=== PATIENT | female | born 1985 | race Caucasian/White ===

== ENCOUNTER → 2016-03-17 | Outpatient (CLI) | payer OTHER ==
[2016-03-17 10:23] LABS: HEMATOCRIT 35.8 % (37.0-47.0); HEMOGLOBIN 11.8 g/dL (12.0-16.0); MEAN CORPUSCULAR HEMOGLOBIN 29.9 PG (27-31); MEAN PLATELET VOLUME 9.8 FL (7.4-12.2); RED BLOOD COUNT 3.95 10^6/uL (4.20-5.40); WHITE BLOOD COUNT 8.62 10^3/uL (4.8-10.8)
== END ==
LOC: LAB 09:09
PROVIDERS: ATTEND Student in an Organized Health Care Education/Training Program
DX: Z36 Encounter for antenatal screening of mother (principal); O36.0130 Maternal care for anti-D [Rh] antibodies, third trimester, not applicable or unspecified; Z3A.28 28 weeks gestation of pregnancy
CPT/HCPCS: 36415; 82950; 85027; 86850; 86900; 86901; J2790

== ENCOUNTER → 2016-03-31 | Outpatient (CLI) | payer OTHER ==
[2016-03-31 10:44] LABS: BLOODY SPECIMEN? NO
== END ==
LOC: MOB LAB 09:36
PROVIDERS: ATTEND Student in an Organized Health Care Education/Training Program
DX: O47.03 False labor before 37 completed weeks of gestation, third trimester (principal); N89.8 Other specified noninflammatory disorders of vagina; Z3A.30 30 weeks gestation of pregnancy
CPT/HCPCS: 82731; 87210

== ENCOUNTER 2016-04-30 09:54 | Outpatient (CLI) | payer OTHER ==
[2016-04-30] MEDS ORDERED: NORMAL SALINE 10 ML SYRINGE FLUSH IVP PRN (10:00)
[2016-04-30 11:07] VITALS: RESP 18; TEMP 97.8
== END 2016-04-30 11:15 | disposition home or self-care (01) ==
LOC: OBOP 09:54
PROVIDERS: ATTEND Obstetrics & Gynecology
DX: O60.03 Preterm labor without delivery, third trimester (principal); Z3A.35 35 weeks gestation of pregnancy
CPT/HCPCS: 59025; 81003; 96372; 99211

== ENCOUNTER → 2016-05-19 | Outpatient (CLI) | payer OTHER | LOC: MOB LAB 09:45 | PROVIDERS: ATTEND Student in an Organized Health Care Education/Training Program | DX: O26.893 Other specified pregnancy related conditions, third trimester (principal); N89.8 Other specified noninflammatory disorders of vagina; Z36 Encounter for antenatal screening of mother; Z3A.37 37 weeks gestation of pregnancy | CPT/HCPCS: 84112; 87150 ==

== ENCOUNTER 2016-06-01 09:48 | Inpatient (IN) | payer OTHER ==
[2016-06-01] MEDS ORDERED: Carboprost Inj 250 MCG/ML AMP IM PRN (18:52)
[2016-06-01] MEDS ORDERED: NORMAL SALINE 10 ML SYRINGE FLUSH IVP PRN (18:52)
[2016-06-01] MEDS ORDERED: NALOXONE 0.4 MG/1 ML VIAL IVP PRN (18:52)
[2016-06-01] MEDS ORDERED: LIDOCAINE W/ SODIUM BICARB 0.5 ML SYR SUBD PRN (18:52)
[2016-06-01] MEDS ORDERED: ONDANSETRON 4 MG/2 ML VIAL IVP PRN (18:52)
[2016-06-01] MEDS ORDERED: Phenylephrine Inj 50 MCG in Normal Saline Flush 0.5 ML IVP PRN (18:52)
[2016-06-01] MEDS ORDERED: CALCIUM CARBONATE 500 MG (TUMS) CHEWABLE TABLET PO PRN (18:52)
[2016-06-01] MEDS ORDERED: Metoclopramide Inj 10 MG/2 ML VIAL IV PRN (18:52)
[2016-06-01] MEDS ORDERED: TERBUTALINE SULFATE 1 MG/1 ML SDV SUBCUT PRN (18:52)
[2016-06-01] MEDS ORDERED: Nalbuphine Inj 20 MG/ML Ampule IVP PRN (18:52)
[2016-06-01] MEDS ORDERED: ePHEDrine Inj 5 MG in Normal Saline Flush 1 ML IVP PRN (18:52)
[2016-06-01] MEDS ORDERED: BUTORPHANOL TARTRATE 2 MG/1 ML VIAL IVP PRN (18:52)
[2016-06-01] MEDS ORDERED: CefOXitin Inj 2 GM in Sodium Chloride 0.9% 100 ML IV PRN (18:52)
[2016-06-01] MEDS ORDERED: fentaNYL Inj 100 MCG/2 ML VIAL IV PRN (18:52)
[2016-06-01] MEDS ORDERED: OXYTOCIN 10 UNIT/1 ML IM PRN (18:52)
[2016-06-01] MEDS ORDERED: Naloxone Inj 0.01 MG in Normal Saline Flush 1 ML IVP PRN (18:52)
[2016-06-01] MEDS ORDERED: Famotidine Inj 20 MG in Normal Saline Flush 10 ML IVP PRN ×4 (18:52)
[2016-06-01] MEDS ORDERED: Lidocaine 1% 10 MG/ML - 20 ML VIAL SUBCUT PRN (18:52)
[2016-06-01] MEDS ORDERED: diphenhydrAMINE 50 MG/1 ML VIAL IVP PRN (18:52)
[2016-06-01] MEDS ORDERED: CITRIC ACID/SODIUM CITRATE 30 ML CUP PO PRN (18:52)
[2016-06-01] MEDS ORDERED: METHYLERGONOVINE MALEATE 0.2 MG/1 ML VIAL IM PRN (18:52)
[2016-06-01] MEDS ORDERED: MISOPROSTOL 200 MCG TABLET RECTAL PRN (18:52)
[2016-06-01] MEDS ORDERED: Oxytocin 20 Units + LR 1,000 ML IV SCH (19:00)
[2016-06-01] MEDS: Lactated Ringers-OB Dept 1,000 ML PRIMARY IV SCH (20:07)
[2016-06-01 20:19] LABS: HEMOGLOBIN 11.4 g/dL (12.0-16.0); MEAN CORPUSCULAR HEMOGLOBIN 29.3 PG (27-31); MEAN CORPUSCULAR HGB CONC 32.6 g/dL (33-37); MEAN PLATELET VOLUME 10.9 FL (7.4-12.2); RED BLOOD COUNT 3.89 10^6/uL (4.20-5.40)
[2016-06-01] MEDS: Oxytocin 20 Units + LR 1,000 ML IV SCH (22:33)
[2016-06-02] MEDS: Lactated Ringers-OB Dept 1,000 ML PRIMARY IV SCH (03:43)
[2016-06-02] MEDS: Oxytocin 20 Units + LR 1,000 ML IV SCH ×2 (07:24→12:54)
[2016-06-02 08:26] VITALS: RESP 18
--- NOTE | 2016-06-02 08:29 | OB.PROGRES ---
Interval History: 31 yo at 39 6/7 weeks gestation by LMP, 1st tri u/s presented yesterday afternoon for irregular contractions. She returned yesterday evening for augmentation of labor with a cervical change from 1.5 cm to 3-4 cm while out walking. She was admitted overnight and placed on low dose pitocin. Contractions have remained irregular, frequent couplets. This morning informal u /s showed OP presentation. She is having mild discomfort with contractions. has been uncomplicated. She did get a course of steroids given h/o delivery. OBHx - 01/13/07 - Delivered a 7lb 6oz male via at 37 weeks. was flown to a tertiary care center for r/o sepsis 2007 - SAB about 6 weeks gestation, no D&C 02/06/09 - Delivered a 7lb 2oz male via at 36 weeks. had a pneumothorax - was sent to a tertiary care center 05/21/10 - Delivered a 7lb female via at 38 weeks. complicated by salmonella enteritis with multiple hospitalization. 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 Paragard IUD taken out in March 2015. No h/o STI. Last pap March 2015, negative. HPV negative. No h/o abnormal paps. PMH - Kidney stones, depression/anxiety FH - mother - HTN, T2DM, asthma Sister - asthma FOBFH - MGM - thyroid cancer MGF - T2DM SH - biomedical photographer, subs at school. to [employer]. Smoked off and on since high school, quit in March 2015 when they decided to start trying. Rare etoh use prior to conception. NKDA Meds: PNV Objective - Cervical Exam Cervical Exam: /-2, posterior, soft, ballotable [place]: q2-5 mins Heart Rate: baseline 130, mod variability, +accels, -decels Heart Rate Interpretation Category: Category I - Labs CBC and BMP: 06/01/16 20:13 Labs - Last 24 Hours: Laboratory Results 06/01/16 Range/Units 20:13 WBC 7.58 (4.8-10.8) 10^3/uL RBC 3.89 L (4.20-5.40) 10^6/uL Hgb 11.4 L (12.0-16.0) g/dL Hct 35.0 L (37.0-47.0) % MCV 90.0 (81-99) FL MCH 29.3 (27-31) PG MCHC 32.6 L (33-37) g/dL RDW Std Deviation 46.8 (39-50) fL RDW Coeff of Azucena 14.9 H (11.5-14.5) % Plt Count 210 (140-350) 10*3/uL MPV 10.9 (7.4-12.2) FL - Vital Signs Last Taken Vital Signs: Vital Signs - Last Taken Temperature 97.9 F 06/02/16 04:00 Pulse Rate 67 06/02/16 06:00 Respiratory Rate 20 06/02/16 05:00 Blood Pressure 110/59 06/02/16 06:00 Pulse Ox 99 06/02/16 07:00 Assessment and Plan - Patient Problems (1) Term Current Visit: Yes Status: Acute Support Text: 31 yo at 39 6/7 weeks gestation -Continue augmentation with pitocin given no change overnight - encouraging walking, maneuvers to help get head engaged and move to OA -Treating as GBS positive, as GBS + with 3 prior pregnancies (eventhough culture was negative) -Continue close observation
[2016-06-02 16:59] VITALS: TEMP 98.3
--- NOTE | 2016-06-02 17:30 | DCSUMMARY ---
Hospitalization Summary Admit Date: 06/01/16 Discharge Date: 06/02/16 Hospital Course: 31 yo at 39 6/7 weeks gestation admitted last night for augmentation of labor. Patient presented yesterday afternoon with contractions but cervix 1-2 cm. She went and walked several hours, returned. Her cervix on return was 4 cm, she was mary irregularly. She was admitted for augmentation/induction of labor. She was placed on low dose pitocin overnight. By 4 am she had no cervical change, pitocin was increased. On my check this morning the head was still quite ballotable, OP. She spent some time ambulating and the head descended some. She was restarted on pitocin, again no change and the head was ballotable again. We then had some staffing issues from a nursing standpoint on the unit. After a long discussion with the patient, decision made to discharge patient to home. FHT remained category I through the entire stay. We did discuss possible return later this week to retry induction vs waiting until 41 weeks if she does not go into labor on her own first. We will tentatively plan for IOL on , but will talk daily leading up to this. Strict return precautions discussed including LOF, VB, decreased FM. Exam - Vitals Vital Signs: Vital Signs Temperature 98.3 F Temperature Source Oral Pulse Rate [Pulse Oximeter] 64 Respiratory Rate 18 Blood Pressure [Right Arm] 113/59 Pulse Ox 97 Oxygen Delivery Method Room Air Height 5 ft 7 in Weight 219 lb Patient Problems - Patient Problem List (1) Term Status: Acute
== END 2016-06-02 17:11 | disposition home or self-care (01) | DRG 782 ==
LOC: OBOP 09:48 → OBIP 19:46
PROVIDERS: ADMIT Student in an Organized Health Care Education/Training Program; ATTEND Student in an Organized Health Care Education/Training Program
DX: O62.8 Other abnormalities of forces of labor (principal); Z3A.39 39 weeks gestation of pregnancy
CPT/HCPCS: 81003; 85027; J2540; J7050; J7120

== ENCOUNTER 2016-06-09 13:28 | Inpatient (IN) | payer OTHER ==
[2016-06-09] MEDS ORDERED: Carboprost Inj 250 MCG/ML AMP IM PRN (17:07)
[2016-06-09] MEDS ORDERED: BUTORPHANOL TARTRATE 2 MG/1 ML VIAL IVP PRN (17:07)
[2016-06-09] MEDS ORDERED: ONDANSETRON 4 MG/2 ML VIAL IVP PRN (17:07)
[2016-06-09] MEDS ORDERED: NALOXONE 0.4 MG/1 ML VIAL IVP PRN (17:07)
[2016-06-09] MEDS ORDERED: CefOXitin Inj 2 GM in Sodium Chloride 0.9% 100 ML IV PRN (17:07)
[2016-06-09] MEDS ORDERED: ePHEDrine Inj 5 MG in Normal Saline Flush 1 ML IVP PRN (17:07)
[2016-06-09] MEDS ORDERED: CALCIUM CARBONATE 500 MG (TUMS) CHEWABLE TABLET PO PRN (17:07)
[2016-06-09] MEDS ORDERED: TERBUTALINE SULFATE 1 MG/1 ML SDV SUBCUT PRN (17:07)
[2016-06-09] MEDS ORDERED: METHYLERGONOVINE MALEATE 0.2 MG/1 ML VIAL IM PRN (17:07)
[2016-06-09] MEDS ORDERED: OXYTOCIN 10 UNIT/1 ML IM PRN (17:07)
[2016-06-09] MEDS ORDERED: Metoclopramide Inj 10 MG/2 ML VIAL IV PRN (17:07)
[2016-06-09] MEDS ORDERED: NORMAL SALINE 10 ML SYRINGE FLUSH IVP PRN (17:07)
[2016-06-09] MEDS ORDERED: fentaNYL Inj 100 MCG/2 ML VIAL IV PRN (17:07)
[2016-06-09] MEDS ORDERED: Phenylephrine Inj 50 MCG in Normal Saline Flush 0.5 ML IVP PRN (17:07)
[2016-06-09] MEDS ORDERED: LIDOCAINE W/ SODIUM BICARB 0.5 ML SYR SUBD PRN (17:07)
[2016-06-09] MEDS ORDERED: Lidocaine 1% 10 MG/ML - 20 ML VIAL SUBCUT PRN (17:07)
[2016-06-09] MEDS ORDERED: Naloxone Inj 0.01 MG in Normal Saline Flush 1 ML IVP PRN (17:07)
[2016-06-09] MEDS ORDERED: CITRIC ACID/SODIUM CITRATE 30 ML CUP PO PRN (17:07)
[2016-06-09] MEDS ORDERED: Nalbuphine Inj 20 MG/ML Ampule IVP PRN (17:07)
[2016-06-09] MEDS ORDERED: diphenhydrAMINE 50 MG/1 ML VIAL IVP PRN (17:07)
[2016-06-09] MEDS ORDERED: Famotidine Inj 20 MG in Normal Saline Flush 10 ML IVP PRN ×4 (17:07)
[2016-06-09] MEDS ORDERED: MISOPROSTOL 200 MCG TABLET RECTAL PRN (17:07)
[2016-06-09] MEDS ORDERED: Oxytocin 20 Units + LR 1,000 ML IV SCH ×2 (17:15→18:30)
[2016-06-09] MEDS: Lactated Ringers-OB Dept 1,000 ML PRIMARY IV SCH (17:42)
[2016-06-09 17:58] LABS: HEMATOCRIT 34.3 % (37.0-47.0); HEMOGLOBIN 11.3 g/dL (12.0-16.0); MEAN CORPUSCULAR HEMOGLOBIN 29.7 PG (27-31); MEAN CORPUSCULAR HGB CONC 32.9 g/dL (33-37); MEAN PLATELET VOLUME 10.7 FL (7.4-12.2); RED BLOOD COUNT 3.81 10^6/uL (4.20-5.40)
[2016-06-10] MEDS: Lactated Ringers-OB Dept 1,000 ML PRIMARY IV SCH ×3 (00:22→10:03)
--- NOTE | 2016-06-10 08:41 | OB.PROGRES ---
Interval History: 31 yo at 41 0/7 weeks gestation. Admitted last night for IOL for post dates. Patient was here last week for IOL, no progress after about 18 hours, then with a staffing issue, decision made to d/c to home. Upon arrival last night we did u/s and is still OP. Mom was having intermittent contractions. SVE 4/50/-2, ballotable at start. We proceeded with low dose pitocin through the night. Head was better engaged this morning, 4-5/90/-2. AROM completed with copious, clear fluid. Mom and tolerated well. Contractions were 6/10, getting more intense now. Pitocin still at 10mU. Objective - Cervical Exam [place]: some couplets q3min Heart Rate: baseline 140, mod variability, no decels, accels Heart Rate Interpretation Category: Category I - Labs CBC and BMP: 06/09/16 17:56 Labs - Last 24 Hours: Laboratory Results 06/09/16 Range/Units 17:56 WBC 8.86 (4.8-10.8) 10^3/uL RBC 3.81 L (4.20-5.40) 10^6/uL Hgb 11.3 L (12.0-16.0) g/dL Hct 34.3 L (37.0-47.0) % MCV 90.0 (81-99) FL MCH 29.7 (27-31) PG MCHC 32.9 L (33-37) g/dL RDW Std Deviation 48.2 (39-50) fL RDW Coeff of Azucena 15.0 H (11.5-14.5) % Plt Count 169 (140-350) 10*3/uL MPV 10.7 (7.4-12.2) FL - Vital Signs Last Taken Vital Signs: Vital Signs - Last Taken Temperature 97.6 F 06/10/16 06:45 Pulse Rate 99 06/10/16 06:45 Respiratory Rate 20 06/10/16 06:45 Blood Pressure 103/62 06/10/16 05:00 Pulse Ox 99 06/10/16 07:00 Assessment and Plan - Patient Problems (1) Post-dates Current Visit: Yes Status: Acute Support Text: IOL for postdates, s/p AROM with large amount of clear fluid. Continue pitocin titration, will place IUPC if needed. Treating as GBS positive as was GBS positive in prior pregnancies (although culture negative this round). PCN [place] gender Will likely want an epidural soon Continue close monitoring
[2016-06-10] MEDS ORDERED: fentaNYL 2 MCG/BUPIVACAINE 0.0625%/NS 0.9% 250 ML BAG EPIDURAL SCH (09:45)
--- NOTE | 2016-06-10 09:48 | CRNA.PROCE ---
Central Neuraxis Block Placemt - - Safety Measures: Time Out Taken, Site Verified - - Type of Block: Epidural Reason for Block: Analgesia Moniters Used During Block: SPO2, NIBP Positioning: Sitting Skin Prep Used: Betadine Draped: Yes Skin Infiltration - Enter Amount Used in Comment Field: 1% Xylocaine (mL): Yes ( skin wheal) Introducer User: 18 Gauge Husimani Local Anesthetic - Enter Amount Used in Comment Field: 5.0 % Xylocaine with Dextrose (ml): Yes (5ml test dose Neg) Number of Centimeters Catheter Threaded: 3 Bioclusive Dressing Applied: Yes - - Additional Details: Reviewed risks/benefits of epidural analgesia for SEKOU, she wishes to proceed. History obtained and chart reviewed. Monitors, sitting, landmarks id'd and betadine prep, drape, skin wheal at L4-5 and #18 Hustead passed with JUSTINO to saline first pass, cath easily 3cm. 5ml test dose neg and cath secured. EPCA started. Laboratory Results 06/09/16 Range/Units 17:56 WBC 8.86 (4.8-10.8) 10^3/uL RBC 3.81 L (4.20-5.40) 10^6/uL Hgb 11.3 L (12.0-16.0) g/dL Hct 34.3 L (37.0-47.0) % MCV 90.0 (81-99) FL MCH 29.7 (27-31) PG MCHC 32.9 L (33-37) g/dL RDW Std Deviation 48.2 (39-50) fL RDW Coeff of Azucena 15.0 H (11.5-14.5) % Plt Count 169 (140-350) 10*3/uL MPV 10.7 (7.4-12.2) FL Vital Signs (24 hrs) Temp Pulse Resp BP Pulse Ox 06/10/16 08:15 97.6 F 06/10/16 07:00 99 06/10/16 06:45 97.6 F 99 20 06/10/16 06:00 97.8 F 60 16 99 06/10/16 05:00 68 16 103/62 97 06/10/16 04:15 65 16 117/67 97 06/10/16 03:45 97.9 F 69 16 109/66 99 06/10/16 03:00 99 04/04/17 01:30 97.8 F 60 16 111/51 99 06/10/16 00:30 61 16 113/68 98 06/09/16 23:30 97.7 F 70 18 117/69 99 06/09/16 23:00 98 06/09/16 22:00 74 16 122/67 99 06/09/16 21:00 70 16 114/67 99 06/09/16 20:00 61 16 111/67 100 06/09/16 19:00 97.8 F 62 16 117/74 100 06/09/16 18:30 77 06/09/16 17:23 97.5 F 67 18 119/70 99 06/09/16 17:21 97.5 F 90 18 119/70 100
[2016-06-10] MEDS ORDERED: BUPivacaine Inj 0.25% PF - 10ml vial ONE (09:58)
--- NOTE | 2016-06-10 14:59 | OB.DEL.SUM ---
Delivery Note Delivery Summary: 31 yo G5 now P4 presented last night for IOL for post dates. She was on low dose pitocin through the night. At around 0800, AROM with large amount of clear fluid. Pitocin was continued. She had an epidural placed this morning. She was complete around 1300. At around 1400 she pushed with approximately 5 contraction and delivered a live female in OA position over an intact perineum. A single nuchal cord was reduced. The R shoulder then delivered anteriorly and L shoulder posteriorly. She had a hemostatic mild periurethral tear which did not require repair. EBL 300 cc. Mom and tolerated well. Apgars 9, 10. Infant has not been weighed yet. - Patient Problems (1) Post-dates Current Visit: Yes Status: Acute
[2016-06-10] MEDS ORDERED: diphenhydrAMINE 25 MG CAPSULE PO PRN (16:23)
[2016-06-10] MEDS ORDERED: LANOLIN HPA 40 GM TUBE TOPICAL PRN (16:23)
[2016-06-10] MEDS ORDERED: diphenhydrAMINE 50 MG/1 ML VIAL IVP PRN (16:23)
[2016-06-10] MEDS ORDERED: OXYTOCIN 10 UNIT/1 ML IM ONE (16:23)
[2016-06-10] MEDS ORDERED: BENZOCAINE/MENTHOL SPRAY 56 GM BOTTLE TOPICAL PRN (16:23)
[2016-06-10] MEDS ORDERED: Carboprost Inj 250 MCG/ML AMP IM PRN (16:23)
[2016-06-10] MEDS ORDERED: MISOPROSTOL 200 MCG TABLET RECTAL ONE (16:23)
[2016-06-10] MEDS ORDERED: METHYLERGONOVINE MALEATE 0.2 MG/1 ML VIAL IM PRN (16:23)
[2016-06-10] MEDS ORDERED: Methylergonovine Tab 0.2 MG TAB PO PRN (16:23)
[2016-06-10] MEDS ORDERED: ACETAMINOPHEN 325 MG TABLET PO PRN (16:23)
[2016-06-10] MEDS ORDERED: GLYCERIN/WITCH HAZEL 1 BOX TOPICAL PRN (16:23)
[2016-06-10] MEDS ORDERED: DIPH,PERTUSS,TET(ADACEL) VAC/PF 0.5 ML (Tdap) IM SCH (16:23)
[2016-06-10] MEDS ORDERED: Oxytocin 20 Units + LR 1,000 ML IV SCH (16:23)
[2016-06-10] MEDS ORDERED: Nalbuphine Inj 20 MG/ML Ampule IVP PRN (16:23)
[2016-06-10] MEDS ORDERED: CALCIUM CARBONATE 500 MG (TUMS) CHEWABLE TABLET PO PRN (16:23)
[2016-06-10] MEDS ORDERED: HYDROcodone-APAP 5 MG -325 MG TABLET PO PRN (16:23)
[2016-06-10] MEDS ORDERED: NORMAL SALINE 10 ML SYRINGE FLUSH IVP PRN (16:23)
[2016-06-10] MEDS ORDERED: Ondansetron ODT Tab 4 MG TAB PO PRN (16:23)
[2016-06-10] MEDS ORDERED: IBUPROFEN 800 MG TABLET PO PRN (16:23)
[2016-06-10] MEDS ORDERED: ONDANSETRON 4 MG/2 ML VIAL IVP PRN (16:23)
[2016-06-10] MEDS ORDERED: RHO(D) IMMUNE GLOBULIN 1500 UNIT(300 mcg)SYRIN IM PRN (23:41)
[2016-06-11] MEDS: DOCUSATE 100 MG CAPSULE PO SCH ×2 (03:25→10:04)
[2016-06-11 07:36] VITALS: RESP 18; TEMP 97.9
[2016-06-11] MEDS ORDERED: Prenatal Multivitamin Tab 1 TAB TAB PO SCH (09:00)
[2016-06-11 09:40] LABS: HEMOGLOBIN 10.9 g/dL (12.0-16.0); MEAN CORPUSCULAR HEMOGLOBIN 30.1 PG (27-31); MEAN CORPUSCULAR VOLUME 91.2 FL (81-99); RED BLOOD COUNT 3.62 10^6/uL (4.20-5.40)
[2016-06-11 09:41] LABS: MEAN PLATELET VOLUME 11.1 FL (7.4-12.2)
--- NOTE | 2016-06-11 10:56 | DCSUMMARY ---
Hospitalization Summary Admit Date: 06/09/16 Discharge Date: 06/11/16 Primary Diagnosis:: s/p Delivery Type: Vaginal Hospital Course: 31 yo G5 now [id number] presented at 40 6/7 weeks gestation for IOL for postdates. She was on low dose pitocin overnight, then titrated up the next morning. Underwent AROM, large amount of clear fluid. She progressed well from there. Once complete she labored down for about an hour, then pushed with approx 5 contractions. Delivered a TLGA female infant, 8 lbs 14 oz. She did not have any significant tears. She has done well . Ready for d/c to home. Of note she did receive PCN ppx as she was GBS positive in prior pregnancies, although negative this . She will get rhogam prior to d/c as her blood type is O-, baby is O+. / Postop Complications: none apparent Complications: Borderline low blood sugars in this LGA , did not require any D10W. Exam - Vitals Vital Signs: Vital Signs Temperature 97.9 F Temperature Source Oral Pulse Rate [Pulse Oximeter] 72 Pulse Rate 96 Respiratory Rate [Subra Pubic 20 Pressure] Respiratory Rate 18 Blood Pressure [Right Arm] 110/57 Blood Pressure 112/58 Pulse Ox 97 Oxygen Flow Rate [Subra Pubic 10 Pressure] Oxygen Flow Rate 10 Oxygen Delivery Method Room Air Height 5 ft 7 in Weight 211 lb Patient Problems - Patient Problem List (1) Post-dates Current Visit: Yes Status: Acute Support Text: 31 yo G5 now P4, PPD 1 s/p . -Pain well controlled -Breast feeding, baby is latching well -Rhogam prior to d/c -Plans to do paragard IUD for contraception at 6 week pp visit -Rx for hydrocodone 5/325 #20 sent to pharmacy, continue pnv, stool softener -F/u with me in 6 weeks, sooner for any concerns
== END 2016-06-11 15:27 | disposition home or self-care (01) | DRG 775 ==
LOC: OBIP 17:07
PROVIDERS: ADMIT Student in an Organized Health Care Education/Training Program; ATTEND Student in an Organized Health Care Education/Training Program
PROC: 10E0XZZ Delivery of Products of Conception, External Approach (ICD-10-PCS; principal; 2016-06-09)
DX: O80 Encounter for full-term uncomplicated delivery (principal); Z3A.40 40 weeks gestation of pregnancy; Z37.0 Single live birth
CPT/HCPCS: 36415; 85027; 86850; 86900; 86901; 86970; J2210; J2540; J2790; J3490; J7050; J7120

== ENCOUNTER → 2016-07-22 | Outpatient (CLI) | payer OTHER | LOC: MOB LAB 13:28 | PROVIDERS: ATTEND Student in an Organized Health Care Education/Training Program | DX: Z30.430 Encounter for insertion of intrauterine contraceptive device (principal) | CPT/HCPCS: 87491; 87591 ==